=== PATIENT | male | born 1975 | race Caucasian/White ===

== ENCOUNTER 2022-12-08 05:15 | Emergency (ER) | payer MEDICAID ==
[~2022-12-08] VITALS: Ht 165.1 cm; Wt 94.4 kg
[2022-12-08 12:08] LABS: HEMATOCRIT. 38.6 % (42.0-52.0); HEMOGLOBIN. 13.2 g/dL (14.0-18.0); MEAN CORPUSCULAR HEMOGLOBIN 29.5 pg (28.0-32.0); MEAN CORPUSCULAR VOLUME 86.1 fL (80.0-94.0); MEAN PLATELET VOLUME 10.2 fl (7.4-10.4); RED BLOOD CELL COUNT 4.48 mill/uL (4.7-6.1); RED CELL DISTRIBUTION WIDTH 13.8 % (11.6-14.6)
[2022-12-08 12:18] LABS: CHLORIDE 108 mEq/L (98-107)
[2022-12-08 12:26] LABS: PLATELET 39 x1000/uL (130-400)
[2022-12-08 12:27] LABS: ETHANOL BLOOD < 10 mg/dL
[2022-12-08 12:29] LABS: PLATELET ESTIMATE MARKEDLY DECREASED
[2022-12-08] MEDS ORDERED: SODIUM CHLORIDE 0.9% 1000ML BAG (SEPSIS BOLUS) IV ONE (20:00)
[2022-12-08] MEDS ORDERED: AMPICILLIN SOD/SULBACTAM NA 3 G in SODIUM CHLORIDE 0.9% 100 ML IV SCH (20:00)
[2022-12-08] MEDS ORDERED: IOHEXOL-350 100 ML BOTTLE ONE (20:13)
[2022-12-08] MEDS ORDERED: MORPHINE SULFATE 2 MG/ML CPJ (NOT FOR IM USE) IV ONE (21:00)
[2022-12-08] MEDS ORDERED: ACETAMINOPHEN 325MG TABLET PO ONE ×2 (21:15→22:45)
[2022-12-08] MEDS ORDERED: IBUPROFEN 600MG TABLET PO ONE (22:45)
[2022-12-08 22:56] VITALS: BP 111/75
== END 2022-12-09 01:00 | disposition short-term general hospital (02) ==
LOC: ER 05:15 → CANBEDREQ 12-09 01:51
DX: R07.89 Other chest pain (principal); K76.0 Fatty (change of) liver, not elsewhere classified; Z20.822 Contact with and (suspected) exposure to COVID-19
CPT/HCPCS: 36415; 71045; 71275; 80053; 80320; 83690; 83880; 84145; 84484; 85025; 85379; 87426; 93005; 96365; 96375; 99285; C9803; J0295; J2270; J7030; J7050; Q9967; G0480